=== PATIENT | female | born 1985 ===

== ENCOUNTER 2018-01-22 10:34 | Outpatient (CLI) | payer OTHER | END 2018-01-22 11:14 | disposition home or self-care (01) | LOC: NST 10:34 | DX: Z34.83 Encounter for supervision of other normal pregnancy, third trimester (principal) ==

== ENCOUNTER 2018-02-02 10:43 | Inpatient (IN) | payer OTHER ==
[~2018-02-02] VITALS: Ht 160 cm; Wt 71.7 kg
[2018-02-10] MEDS ORDERED: PRENATAL 19 TA1 EAC1 PO (07:36)
== END 2018-02-13 17:17 | DRG 775 ==
LOC: LDR 02-10 09:57 → OB/GYN 02-10 09:57 → LDR 02-19 10:42
PROC: 10E0XZZ Delivery of Products of Conception, External Approach (ICD-10-PCS; principal; 2018-02-10)
PROC: 0KQM0ZZ Repair Perineum Muscle, Open Approach (ICD-10-PCS; 2018-02-10)
PROC: 0UQMXZZ Repair Vulva, External Approach (ICD-10-PCS; 2018-02-10)
PROC: 10907ZC Drainage of Amniotic Fluid, Therapeutic from Products of Conception, Via Natural or Artificial Opening (ICD-10-PCS; 2018-02-10)
PROC: 4A1HXCZ Monitoring of Products of Conception, Cardiac Rate, External Approach (ICD-10-PCS; 2018-02-10)
DX: O70.1 Second degree perineal laceration during delivery (principal); O71.82 Other specified trauma to perineum and vulva; Z37.0 Single live birth; Z3A.38 38 weeks gestation of pregnancy; Z22.330 Carrier of Group B streptococcus

== ENCOUNTER 2018-02-10 07:17 | Outpatient (CLI) | payer OTHER ==
[2018-02-10] MEDS ORDERED: PRENATAL 19 TA1 EAC1 PO (07:36)
== END 2018-02-10 09:57 | disposition still patient (30) ==
LOC: OBS/DEL 07:17
DX: O47.03 False labor before 37 completed weeks of gestation, third trimester (principal); Z34.83 Encounter for supervision of other normal pregnancy, third trimester